=== PATIENT | female | born 1930 | race Caucasian/White ===

== ENCOUNTER 2016-05-06 16:53 | Emergency (ER) | payer OTHER ==
[~2016-05-06] VITALS: Ht 157.5 cm; Wt 72.0 kg
[~2016-05-06 16:53] MED LIST: ADULT LOW DOSE81 M1 PO; ASPIRIN81 M1 PO; ATIVAN0.5 MG PO; BACTRIM,SEPT1 TABLET PO; CALCIUM + D TA1 EACH PO; CALCIUM CITRAT1 EAC3 PO; CENTRUM SILVER1 EAC3 PO; COLACE100 MG PO; CRESTOR10 MG PO; DIOVAN320 MG PO; FIORICET,ESG1 TABLET PO; GENERLAC10 GM/15 M PO; LOPRESSOR25 MG PO; LORTAB 5-325 M1 EACH PO; MAGNESIUM OXID500 MG PO; METAMUCIL CAPSU1 CAP PO; METAMUCIL0.52 GM PO; NEURONTIN100 MG PO; NEURONTIN300 MG PO; PRILOSEC40 MG PO; PROBIOTIC1 EAC1 PO; SEROQUEL12.5 MG PO; SUCRALFATE1 GM PO; TYLENOL/CODE1 TABLE1 PO; VITAMIN D-32000 UNI1 PO; ZANTAC300 MG PO; ZOFRAN4 MG PO
[2016-05-06] MEDS ORDERED: MOBIC7.5 MG PO (23:34)
[2016-05-06] MEDS ORDERED: VALIUM2 MG PO (23:34)
[2016-05-07 00:10] VITALS: BP 155/79
== END 2016-05-07 00:11 | disposition home or self-care (01) ==
LOC: EME → EDBD 16:53 → EME 05-07 00:11
DX: S70.02XA Contusion of left hip, initial encounter (principal); S39.012A Strain of muscle, fascia and tendon of lower back, initial encounter; S30.0XXA Contusion of lower back and pelvis, initial encounter; W01.0XXA Fall on same level from slipping, tripping and stumbling without subsequent striking against object, initial encounter; G89.29 Other chronic pain; Z79.891 Long term (current) use of opiate analgesic; E78.5 Hyperlipidemia, unspecified; Z79.82 Long term (current) use of aspirin; Z87.891 Personal history of nicotine dependence
CPT/HCPCS: 72131; 72192; 99281; 99285; J3010

== ENCOUNTER 2017-04-02 21:04 | Inpatient (IN) | payer OTHER ==
[~2017-04-02] VITALS: Ht 157.5 cm; Wt 98.2 kg
[~2017-04-02 21:04] MED LIST changes: +ASCORBIC ACID500 M3 PO; +CALCIUM 600 MG1 EACH PO; +CO Q-10100 MG PO; +CRANBERRY500 M2 PO; +CRESTOR20 MG PO; +FIORICET 50-301 EAC1 PO; +GAS-X125 MG PO; +IMODIUM A-D2 M2 PO; +LORCET HD 10-31 EACH PO; +MAGNESIUM400 M1 PO; +MOBIC7.5 MG PO; +OMEPRAZOLE40 M1 PO; +PROMETHAZINE HC25 M1 PO; +STOOL SOFTENER100 MG PO; +VALIUM2 MG PO; +VENTOLIN HFA18 GM IH; +VITAMIN D2000 UNIT PO
[2017-04-03 13:36] VITALS: BP 185/84
[2017-04-03 20:30] VITALS: BP 188/83
[2017-04-03 20:42] VITALS: BP 188/83
[2017-04-03 23:44] VITALS: BP 168/70
[2017-04-04] VITALS (7 sets, daily range): BP systolic 126–168; BP diastolic 62–80
[2017-04-04 05:57] LABS: HEMATOCRIT 35.1 % (36.0-46.0); MCV 92.6 FL (83-99)
[2017-04-04 05:58] LABS: HEMOGLOBIN 11.3 G/DL (11.9-15.5)
[2017-04-04 06:21] LABS: CHLORIDE 105 MEQ/L (99-109); CREATININE 1.1 MG/DL (0.6-1.3); GFR ESTIMATE (CALCULATED) 50 mL/min/; GLUCOSE 110 mg/dL (70-99); POTASSIUM 4.1 MEQ/L (3.7-5.4); SODIUM 141 MEQ/L (136-147); UREA NITROGEN (BUN) 16 mg/dL (9-23)
[2017-04-05 06:04] LABS: HEMATOCRIT 33.1 % (36.0-46.0); HEMOGLOBIN 10.8 G/DL (11.9-15.5); MCV 93.5 FL (83-99)
[2017-04-05 08:06] VITALS: BP 143/63
[2017-04-05] MEDS ORDERED: BENADRYL25 MG PO (09:21)
[2017-04-05] MEDS ORDERED: CELECOXIB200 MG PO (09:22)
[2017-04-05] MEDS ORDERED: ELIQUIS2.5 MG PO (09:27)
[2017-04-05] MEDS ORDERED: HYDROCODON-ACE1 EAC7 PO (09:27)
[2017-04-05 16:10] VITALS: BP 142/66
[2017-04-05 23:27] VITALS: BP 160/72
[2017-04-06 07:55] VITALS: BP 140/63
[2017-04-06 16:34] VITALS: BP 142/86
== END 2017-04-06 18:22 | DRG 470 ==
LOC: ENRESERV 21:04 → 2SOUTH 04-03 11:37 → 3EAST 04-03 11:37 → 2SOUTH 04-03 11:48 → ENRESERV 04-03 19:53 → 3EAST 04-03 20:11
PROVIDERS: Orthopaedic Surgery
PROC: 0SRD0J9 Replacement of Left Knee Joint with Synthetic Substitute, Cemented, Open Approach (ICD-10-PCS; principal; 2017-04-03)
DX: M17.12 Unilateral primary osteoarthritis, left knee (principal); I12.9 Hypertensive chronic kidney disease with stage 1 through stage 4 chronic kidney disease, or unspecified chronic kidney disease; N18.3 Chronic kidney disease, stage 3 (moderate); E78.00 Pure hypercholesterolemia, unspecified; K21.9 Gastro-esophageal reflux disease without esophagitis; F41.9 Anxiety disorder, unspecified; J45.909 Unspecified asthma, uncomplicated; E11.9 Type 2 diabetes mellitus without complications; Z68.34 Body mass index [BMI] 34.0-34.9, adult; Z85.828 Personal history of other malignant neoplasm of skin; Z87.891 Personal history of nicotine dependence; Z79.82 Long term (current) use of aspirin
CPT/HCPCS: 71045; 80048; 85014; 85018; 94640; 94640 76; 99202; C1713; J0131; J0690; J1170; J1885; J2250; J2405; J2795; J7050

== ENCOUNTER 2017-04-09 08:00 | Inpatient (IN) | payer OTHER ==
[~2017-04-09] VITALS: Ht 157.5 cm; Wt 85.4 kg
[~2017-04-09 08:00] MED LIST changes: +BENADRYL25 MG PO; +CELECOXIB200 MG PO; +ELIQUIS2.5 MG PO; +HYDROCODON-ACE1 EAC7 PO
[2017-04-09 09:01] LABS: BASOPHIL (%) 0.5 % (0-1); EOSINOPHIL COUNT 0.1 K/uL (0-0.3); HEMATOCRIT 36.2 % (36.0-46.0); HEMOGLOBIN 11.7 G/DL (11.9-15.5); IMMATURE GRANULOCYTE (%) 0.7 % (0.0-0.7); LYMPHOCYTE (%) 23.3 % (15-42); LYMPHOCYTE COUNT 1.3 K/uL (1.0-2.8); MCH 30.4 PG (29.0-34.0); MCHC 32.3 G/DL (30.0-36.0); MONOCYTE (%) 14.3 % (3-12); MONOCYTE COUNT 0.8 K/uL (0-0.8); NEUTROPHIL (%) 59.2 % (45-76); NEUTROPHIL COUNT 3.3 K/uL (1.8-6.4); PLATELET COUNT 173 K/uL (156-360); RBC DIS.WIDTH-CV 13.2 % (11.8-14.6); RBC DIS.WIDTH-SD 45.1 % (39-53); RED BLOOD COUNT 3.85 M/uL (3.80-5.20); WHITE BLOOD COUNT 5.5 K/uL (4.1-10.2)
[2017-04-09 09:16] LABS: ALBUMIN 3.8 g/dL (3.2-4.8); CHLORIDE 98 mEq/L (99-109); POTASSIUM 4.7 mEq/L (3.7-5.4); SODIUM 136 mEq/L (136-147)
[2017-04-09 09:19] LABS: TOTAL PROTEIN 6.7 g/dL (6.4-8.3)
[2017-04-09 09:21] LABS: TOTAL BILIRUBIN 0.6 mg/dL (0.0-1.0)
[2017-04-09 09:22] LABS: ALKALINE PHOSPHATASE 63 IU/L (3-129); CREATININE 0.9 mg/dL (0.6-1.3); GFR ESTIMATE (CALCULATED) > 59 mL/min/; GLUCOSE 112 mg/dL (70-99)
[2017-04-09 09:23] LABS: UREA NITROGEN (BUN) 16 mg/dL (9-23)
[2017-04-09 09:24] LABS: AST (GOT) 49 IU/L (2-34)
[2017-04-09 09:25] LABS: ALT (GPT) 12 IU/L (3-49); TROP-I INTERPRETATION INDETERMINATE; TROPONIN-I 0.33 ng/mL (0.0-0.30)
[2017-04-09] MEDS ORDERED: LOW DOSE ASPIRI81 M1 PO (12:11)
[2017-04-09] MEDS ORDERED: DUONEB 2.5-0.5 M3 ML AEROSOL (12:11)
[2017-04-09] MEDS ORDERED: ATIVAN0.5 MG PO (12:12)
[2017-04-09] MEDS ORDERED: NEURONTIN300 MG PO (12:13)
[2017-04-09] MEDS ORDERED: LOPRESSOR25 MG PO (12:13)
[2017-04-09] MEDS ORDERED: VENTOLIN HFA18 GM IH (12:14)
[2017-04-09] MEDS ORDERED: COLACE100 MG PO (12:15)
[2017-04-09] MEDS ORDERED: ELIQUIS2.5 MG PO (12:15)
[2017-04-09] MEDS ORDERED: CRANBERRY500 M2 PO (12:21)
[2017-04-09] MEDS ORDERED: CALCIUM 600 +1 EAC9 PO (12:21)
[2017-04-09] MEDS ORDERED: ASCORBIC ACID500 M3 PO (12:22)
[2017-04-09] MEDS ORDERED: MAGNESIUM400 M1 PO (12:22)
[2017-04-09] MEDS ORDERED: CENTRUM SILVER1 EAC4 PO (12:23)
[2017-04-09] MEDS ORDERED: VITAMIN D2000 UNIT PO (12:23)
[2017-04-09] MEDS ORDERED: SEROQUEL12.5 MG PO (12:24)
[2017-04-09] MEDS ORDERED: CO Q-10100 MG PO (12:25)
[2017-04-09] MEDS ORDERED: CRESTOR20 MG PO (12:25)
[2017-04-09] MEDS ORDERED: OMEPRAZOLE40 M1 PO (12:27)
[2017-04-09] MEDS ORDERED: TRAZODONE HCL50 MG PO (12:27)
[2017-04-09] MEDS ORDERED: MILK OF MAGN PO (12:28)
[2017-04-09] MEDS ORDERED: DULCOLAX10 MG PR (12:29)
[2017-04-09] MEDS ORDERED: FLEET ENEMA-AD118 ML PR (12:29)
[2017-04-09] MEDS ORDERED: FIORICET 50-301 EAC1 PO (12:30)
[2017-04-09] MEDS ORDERED: LOPERAMIDE2 MG PO (12:30)
[2017-04-09] MEDS ORDERED: BENADRYL25 MG PO (12:32)
[2017-04-09] MEDS ORDERED: GAS RELIEF125 MG PO (12:32)
[2017-04-09] MEDS ORDERED: NORCO 5/3251 TABLET PO (12:33)
[2017-04-09] MEDS ORDERED: TYLENOL REGULA325 MG PO (12:33)
[2017-04-09] MEDS ORDERED: TESSALON200 MG PO (12:34)
[2017-04-09] MEDS ORDERED: ZOFRAN8 MG PO (12:34)
[2017-04-09] MEDS ORDERED: PHENERGAN DM SYR1 ML PO (12:35)
[2017-04-09 13:17] LABS: TROP-I INTERPRETATION NEGATIVE; TROPONIN-I 0.25 ng/mL (0.0-0.30)
[2017-04-09 14:15] VITALS: BP 148/65
[2017-04-09 16:24] VITALS: BP 144/64
[2017-04-09 19:45] LABS: TROP-I INTERPRETATION INDETERMINATE; TROPONIN-I 0.41 ng/mL (0.0-0.30)
[2017-04-09 20:09] VITALS: BP 140/65
[2017-04-09 23:18] VITALS: BP 115/52
[2017-04-10 03:48] VITALS: BP 122/60
[2017-04-10 07:26] LABS: CHLORIDE 99 MEQ/L (99-109); CREATININE 0.8 MG/DL (0.6-1.3); GFR ESTIMATE (CALCULATED) > 59 mL/min/; GLUCOSE 155 mg/dL (70-99); POTASSIUM 4.3 MEQ/L (3.7-5.4); SODIUM 136 MEQ/L (136-147); UREA NITROGEN (BUN) 20 mg/dL (9-23)
[2017-04-10 09:16] VITALS: BP 172/72
[2017-04-10 11:32] VITALS: BP 150/67
[2017-04-10 15:52] VITALS: BP 132/62
[2017-04-10 20:00] VITALS: BP 137/61
[2017-04-11] VITALS: BP 116/55
[2017-04-11 03:50] VITALS: BP 148/67
[2017-04-11 06:36] LABS: BASOPHIL (%) 0.1 % (0-1); EOSINOPHIL (%) 0.1 % (0-5); HEMATOCRIT 35.4 % (36.0-46.0); HEMOGLOBIN 11.4 G/DL (11.9-15.5); LYMPHOCYTE (%) 11.8 % (15-42); LYMPHOCYTE COUNT 1.6 K/uL (1.0-2.8); MCH 29.6 PG (29.0-34.0); MCHC 32.2 G/DL (30.0-36.0); MCV 91.9 FL (83-99); MONOCYTE COUNT 0.8 K/uL (0-0.8); NEUTROPHIL COUNT 11.2 K/uL (1.8-6.4); RBC DIS.WIDTH-CV 13.2 % (11.8-14.6); RBC DIS.WIDTH-SD 44.9 % (39-53); RED BLOOD COUNT 3.85 M/uL (3.80-5.20); WHITE BLOOD COUNT 13.8 K/uL (4.1-10.2)
[2017-04-11 06:40] LABS: PLATELET COUNT 228 K/uL (156-360)
[2017-04-11 07:01] LABS: CHLORIDE 103 MEQ/L (99-109); CREATININE 0.9 MG/DL (0.6-1.3); GFR ESTIMATE (CALCULATED) > 59 mL/min/; GLUCOSE 148 mg/dL (70-99); POTASSIUM 4.5 MEQ/L (3.7-5.4); SODIUM 140 MEQ/L (136-147); UREA NITROGEN (BUN) 30 mg/dL (9-23)
[2017-04-11 07:55] VITALS: BP 142/101
[2017-04-11 10:56] LABS: TROP-I INTERPRETATION NEGATIVE; TROPONIN-I 0.29 ng/mL (0.0-0.30)
[2017-04-11 11:17] VITALS: BP 174/79
[2017-04-11 15:16] VITALS: BP 176/70
[2017-04-12 00:13] VITALS: BP 154/72
[2017-04-12 07:08] LABS: BASOPHIL (%) 0.2 % (0-1); EOSINOPHIL (%) 0 % (0-5); HEMATOCRIT 35.6 % (36.0-46.0); HEMOGLOBIN 11.5 G/DL (11.9-15.5); IMMATURE GRANULOCYTE (%) 1.4 % (0.0-0.7); LYMPHOCYTE (%) 16.7 % (15-42); LYMPHOCYTE COUNT 1.7 K/uL (1.0-2.8); MCHC 32.3 G/DL (30.0-36.0); MONOCYTE COUNT 0.4 K/uL (0-0.8); NEUTROPHIL (%) 77.7 % (45-76); PLATELET COUNT 221 K/uL (156-360); RBC DIS.WIDTH-CV 13.6 % (11.8-14.6); RBC DIS.WIDTH-SD 46.5 % (39-53); RED BLOOD COUNT 3.83 M/uL (3.80-5.20); WHITE BLOOD COUNT 10.2 K/uL (4.1-10.2)
[2017-04-12 07:31] LABS: CHLORIDE 101 MEQ/L (99-109); CREATININE 0.9 MG/DL (0.6-1.3); GFR ESTIMATE (CALCULATED) > 59 mL/min/; GLUCOSE 149 mg/dL (70-99); POTASSIUM 4.7 MEQ/L (3.7-5.4); SODIUM 140 MEQ/L (136-147); UREA NITROGEN (BUN) 34 mg/dL (9-23)
[2017-04-12 07:55] VITALS: BP 169/87
[2017-04-12 11:48] LABS: C DIFF TOXIN NEGATIVE (NEGATIVE)
[2017-04-12 15:55] VITALS: BP 168/70
[2017-04-13 00:29] VITALS: BP 155/72
[2017-04-13 07:46] VITALS: BP 189/78
[2017-04-13 11:16] VITALS: BP 166/77
[2017-04-13 15:32] VITALS: BP 178/74
[2017-04-13 18:30] VITALS: BP 172/97
[2017-04-14 00:02] VITALS: BP 140/66
[2017-04-14 07:35] VITALS: BP 174/90
[2017-04-14] MEDS ORDERED: MEDROL DOSEPAK4 MG PO (13:46)
[2017-04-14] MEDS ORDERED: CEFDINIR300 MG PO (13:47)
[2017-04-14 14:33] VITALS: BP 158/76
[2017-04-14] MEDS ORDERED: NORCO 5/3251 TABLET PO (14:49)
== END 2017-04-14 15:16 | DRG 190 ==
LOC: EME 08:00 → EDOF 10:14 → ENRESERV 10:15 → 2EASTP 10:58 → EDOF 10:58 → ENRESERV 11:05 → 2EASTP 14:09 → ENPENDDIS 04-14 → 2EASTP 04-14 15:16
PROVIDERS: Emergency Medicine; Internal Medicine; Student in an Organized Health Care Education/Training Program
DX: J44.1 Chronic obstructive pulmonary disease with (acute) exacerbation (principal); J96.01 Acute respiratory failure with hypoxia; J18.9 Pneumonia, unspecified organism; J20.9 Acute bronchitis, unspecified; J44.0 Chronic obstructive pulmonary disease with (acute) lower respiratory infection; J45.901 Unspecified asthma with (acute) exacerbation; Z99.81 Dependence on supplemental oxygen; I25.10 Atherosclerotic heart disease of native coronary artery without angina pectoris; Z95.5 Presence of coronary angioplasty implant and graft; R19.7 Diarrhea, unspecified; I38 Endocarditis, valve unspecified; I10 Essential (primary) hypertension; K21.9 Gastro-esophageal reflux disease without esophagitis; G43.909 Migraine, unspecified, not intractable, without status migrainosus; E78.5 Hyperlipidemia, unspecified; Z96.652 Presence of left artificial knee joint; Z87.891 Personal history of nicotine dependence; Z79.82 Long term (current) use of aspirin
CPT/HCPCS: 36415; 71275; 74177; 80048; 80053; 80061; 80076; 83036; 83880; 84134; 84484; 85025; 85379; 87493; 87502; 93005; 93306; 93970; 94640; 94640 76; 94799; 97530 GO; 99202; 99281; 99285; J0360; J0456; J0696; J1100; J1650; J1956; J2405; J2930; J7509

== ENCOUNTER → 2017-10-24 | Outpatient (CLI) | payer OTHER ==
[~2017-10-24] MED LIST changes: +CALCIUM 600 +1 EAC9 PO; +CEFDINIR300 MG PO; +CENTRUM SILVER1 EAC4 PO; +DULCOLAX10 MG PR; +DUONEB 2.5-0.5 M3 ML AEROSOL; +FLEET ENEMA-AD118 ML PR; +GAS RELIEF125 MG PO; +LOPERAMIDE2 MG PO; +LOW DOSE ASPIRI81 M1 PO; +MEDROL DOSEPAK4 MG PO; +MILK OF MAGN PO; +NORCO 5/3251 TABLET PO; +PHENERGAN DM SYR1 ML PO; +TESSALON200 MG PO; +TRAZODONE HCL50 MG PO; +TYLENOL REGULA325 MG PO; +ZOFRAN8 MG PO
== END | disposition home or self-care (01) ==
LOC: NUC 07:51
DX: K31.84 Gastroparesis (principal); R10.13 Epigastric pain; R74.0 Nonspecific elevation of levels of transaminase and lactic acid dehydrogenase [LDH]; K59.00 Constipation, unspecified; R51 Headache
CPT/HCPCS: 78264; A9541